=== PATIENT | male | born 1980 | race Caucasian/White ===

== ENCOUNTER 2020-08-11 21:38 | Inpatient (IN) ==
[2020-08-11 22:42] LABS: Urine Bilirubin 3 mg/dl (NEGATIVE); Urine Blood 25 /ul (NEGATIVE); Urine Ketone 15 mg/dL (NEGATIVE); Urine Nitrite Negative (NEGATIVE); Urine Protein 100 mg/dL (NEGATIVE); Urine Specific Gravity >=1.030 SP.GR. (1.005-1.030); Urine Urobilinogen Normal (NORMAL)
[2020-08-11] MEDS ORDERED: MULTIVIT INFUSN,ADULT 4,VIT K 10 ML, THIAMINE HCL 100 MG in NORMAL SALINE 1,000 ML IV SCH (22:45)
[2020-08-11 22:49] LABS: Urine Appearance Clear (CLEAR); Urine Color Dark Yellow; Urine WBC None Seen /hpf (0-5)
--- NOTE | 2020-08-11 22:49 | ERNOTE ---
Medical Problem HPI - Narrative Date of Service: 08/11/20 - General Chief Complaint: General Assessment Time Seen by Provider: 08/11/20 22:12 - Immun/Allergies/Home Medications Immunizations: IMMUNIZATION HX Immunizations Up to Date No History of Influenza Vaccine No Hx Pneumococcal Vaccination No Allergies/Adverse Reactions: Allergies No Known Allergies Allergy (Unverified 08/11/20 21:49) Home Medications: HOME MEDICATIONS NK 08/11/20 [Last Taken Unknown] - History of Present History Narrative: 39-year-old male states that he thinks he is withdrawing from alcohol. States his last drink was approximately 1 week ago and since then he has been having intermittent tremors he denies any hallucinations suicidal homicidal ideation. On exam patient is tremor seems to be somewhat distractible however her blood pressure is elevated and heart rate is in the 90s we will give a banana bag check labs to rule out infection and monitor Review of Systems - Review of Systems Constitutional: Present: See HPI Musculoskeletal: Present: See HPI Neurological: Present: See HPI Psych: Present: See HPI All Other Systems: All systems neg except as marked Medical History (Last Reviewed 08/11/20 @ 22:46 by Angelito Meraz MD) High blood pressure Surgical History: Surgical History (Last Reviewed 08/11/20 @ 22:47 by Angelito Meraz MD) No pertinent past surgical history Family History: Family History (Last Reviewed 08/11/20 @ 22:47 by Angelito Meraz MD) Father Hypertension Social History: (Last Reviewed 08/11/20 @ 22:47 by Angelito Meraz MD) Tobacco: Smoking Status: Current every day smoker tobacco type: cigarettes Smoking cigarettes per day: 20 Alcohol: Alcohol type: hard liquor alcohol intake frequency: a few times a week Physical Exam - Physical Exam General Appearance: Present: wd/wn, alert, no apparent distress, other - Somewhat disheveled in appearance Head Exam: Present: normal inspection, no evidence of injury, other - Poor dentition Eye Exam: Normal inspection: bilateral, PERRL: bilateral, EOMI: bilateral Ears, Nose, Throat: Present: normal ENT inspection Neck: Present: normal inspection, nontender, supple, full range of motion Respiratory: Present: no respiratory distress, no accessory muscle use Cardiovascular/Chest: Present: regular rate, rhythm Gastrointestinal/Abdominal: Present: nondistended Back Exam: Present: normal range of motion Extremity Exam: Present: normal inspection, normal range of motion, no edema Neurological Exam: Present: alert, oriented Skin Exam: Present: normal color, warm/dry Progress - Date and Time Seen: Date and Time: 08/11/20 22:48 Patient symptoms do not classically fit with alcohol withdrawal as he is stating his last drink was approximately 1 week ago and he describes the tremors as intermittent he has no focal deficits and appears to have somewhat distractible tremors however he does have elevated blood pressure but does have a history of hypertension and noncompliance with his medication we will check labs to rule out any source of infection as well as his urine evaluate for EtOH level and drugs I will provide him with IV normal saline banana bag. 08/11/20 23:41 Patient with lab abnormalities return significant for alcohol abuse such as hyponatremia hypokalemia he also exhibits some acute kidney injury and dehydration the patient was given an IV dose of Ativan and I begin replenishing his potassium with 40 mEq orally in addition he was ordered for 4K riders IV. We discussed this with the patient he agreed with plan for admission I talked to the doctor on-call Dr. Borrego who accepted the care and requested the withdrawal protocol while in the hospital. 08/12/20 01:26 Chest x-ray unremarkable EKG shows normal sinus rhythm with nonspecific changes - Vital Signs Vital Signs: Vital Signs 08/11/20 21:44 Temperature 36.1 C Pulse Rate 93 Respiratory Rate 16 Blood Pressure 157/88 H O2 Sat by Pulse Oximetry 99 - X-Ray X-Ray #1 X-Ray: chest Interpretation: Interp. by me, Reviewed by me X-ray Comments: Unremarkable for acute pathology - Progress/Reassessment Chief Complaint: General Assessment Progress:: Improved Departure Clinical Impression: Hypokalemia, Hyponatremia Alcohol withdrawal Qualifiers: Complication of substance-induced condition: uncomplicated Qualified Code(s): F10.230 - Alcohol dependence with withdrawal, uncomplicated Acute kidney failure, unspecified Qualifiers: Acute renal failure type: unspecified Qualified Code(s): N17.9 - Acute kidney failure, unspecified - Departure Disposition: Short Term Hospital Inpatient Condition: Fair
[2020-08-11 22:50] LABS: Urine Bacteria None Seen; Urine RBC 0-5 /hpf (0-5)
[2020-08-11] MEDS ORDERED: chlordiazePOXIDE HCL 10 MG CAPSULE PO ONE (22:50)
[2020-08-11 22:59] LABS: Hematocrit 51.4 % (42.0-52.0); Mean Cell Volume 89.5 fl (78-100); Mean Corpuscular Hemoglobin 31.4 pg (27-31); Mean Platelet Volume 11.1 fl (8-11.3); Platelet Count 247 K/mm3 (150-450); Red Blood Count 5.74 M/mm3 (4.7-6.0); Red Cell Distribution Width 13.2 % (11.5-14.0); White Blood Count 9.3 K/mm3 (4.0-10.5)
[2020-08-11 23:04] LABS: Total Cells Counted 100
[2020-08-11 23:12] LABS: ALT 60 U/L (19-67); AST 41 U/L (0-48); Albumin * 4.2 gm/dl (3.4-5.0); Alkaline Phosphatase * 89 U/L (50-170); Anion Gap 10.2 mmol/L (6.8-13.8); BUN/Creatinine Ratio 18.8 (9.0-21.6); Bilirubin, Total 1.8 mg/dL (0.0-1.1); Blood Urea Nitrogen 52 mg/dL (6-23); Calcium * 10.5 mg/dL (7.9-10.9); Chloride 80 mmol/L (97-106); Glucose * 108 mg/dL (70-110); Sodium 125 mmol/L (132-142); Total Protein 9.1 gm/dL (6.2-8.2)
[2020-08-11 23:16] LABS: Atypical (Reactive) Lymph 10 % (0-2); Eosinophil 2 % (0-3); Lymphocyte 7 % (20-51); Monocyte 10 % (0-9); Neutrophil 71 % (42-75); Neutrophil # 6.6 K/mm3 (1.3-6.0); Platelet Estimate Normal (NORMAL); RBC Morphology Normal (NORMAL)
[2020-08-11 23:18] LABS: Cocaine Ur Negative (NEGATIVE); Urine Barbiturate Negative (NEGATIVE); Urine Benzodiazepines Negative (NEGATIVE); Urine Opiates Negative (NEGATIVE); Urine PCP Negative (NEGATIVE)
[2020-08-11 23:20] LABS: Potassium 2.2 mmol/L (3.4-4.6)
[2020-08-11 23:20] LABS: Urine THC Negative (NEGATIVE)
[2020-08-11] MEDS ORDERED: LORazepam 1 MG TABLET PO ONE (23:24)
[2020-08-11] MEDS ORDERED: LORazepam 2 MG/ML DISP.SYRIN IV ONE (23:24)
[2020-08-11] MEDS ORDERED: POTASSIUM CHLORIDE 20 MEQ TABLET.SA PO ONE (23:26)
[2020-08-12] MEDS: POTASSIUM CHLORIDE IN WATER 100 ML IV SCH ×6 (00:15→11:59)
[2020-08-12] MEDS ORDERED: FOLIC ACID 1 MG TABLET PO STA (01:09)
[2020-08-12] MEDS ORDERED: LORazepam 2 MG/ML DISP.SYRIN IV PRN ×3 (01:09)
[2020-08-12] MEDS ORDERED: LORazepam 2 MG/ML DISP.SYRIN IV SCH (01:15)
--- NOTE | 2020-08-12 07:34 | HP ---
Chief Complaint - Chief Complaint Date of Service: 08/12/20 Chief Complaint: withdrawal History of Present Illness: Franklin Hugo is a 39-year-old white male who was admitted on 08/12/2020 for" I think I am withdrawing from alcohol ". He said he has history of chronic a lcohol abuse, elevated blood pressure in the past. He stopped drinking but started drinking again last week and consumed about 2 bottles of whiskey finishing it around 6 days ago. 3 days later he started having intermittent tremors cramping of his fingers, muscle aches and finally decided to go to the emergency room for help. He denies any fever or chills, diarrhea or constipation but admits to nausea and vomiting. He denied any hallucinations or suicidal homicidal ideations. He would like to have his blood pressure medication in the past be restarted. He was then admitted for further ev aluation and treatment. Medical History (Last Reviewed 08/11/20 @ 22:46 by Angelito Meraz MD) High blood pressure Surgical History: Surgical History (Last Reviewed 08/11/20 @ 22:47 by Angelito Meraz MD) No pertinent past surgical history Family History: Family History (Last Reviewed 08/11/20 @ 22:47 by Angelito Meraz MD) Father Hypertension Social History: (Last Updated 08/11/20 @ 23:17 by Astrid Ramirez RN) Tobacco: Smoking Status: Current every day smoker tobacco type: cigarettes Smoking cigarettes per day: 20 Alcohol: Alcohol type: hard liquor alcohol intake frequency: a few times a week Substance Use: substance use type: does not use Review Of Systems (GEN) - Review of Systems Generalized/Overall Review: Present: Malaise. Absent: Chills, Fever EENTM: Absent: Blurred Vision, Double Vision Respiratory: Absent: Cough, Shortness of Breath, Orthopnea Cardiac: Absent: Chest Pain, Edema, Palpitations Abdominal: Present: Nausea, Vomiting. Absent: Hematemesis, Abdominal Pain, Bright blood from rectum Genitourinary: Absent: Urgency, Frequency Musculoskeletal: Absent: Joint Pain, Back Pain Neurological: Absent: Headache Skin: Absent: Lesions, Rash Endocrine: Absent: Intolerance to Cold, Intolerance to Heat Misc: All systems neg except as marked Immunizations: IMMUNIZATION HX Immunizations Up to Date No History of Influenza Vaccine No Hx Pneumococcal Vaccination No Allergies/Adverse Reactions: Allergies Allergy/AdvReac Type Severity Reaction Status Date / Time No Known Allergies Allergy Unverified 08/11/20 21:49 Home Medications: HOME MEDICATIONS NK 08/11/20 [Last Taken Unknown] Exam - Exam Vital Signs: Vital Signs - Last Taken Temp 36.1 C 08/11/20 21:44 Pulse 75 08/12/20 07:00 Resp 17 08/12/20 07:00 BP 105/70 08/12/20 07:00 Pulse Ox 97 08/12/20 07:00 Constitutional: Present: Alert, Oriented x3, Cooperative ENT Exam: Present: hearing grossly normal Eye Exam: bilateral eye: normal inspection, PERRL, EOMI Neck: Present: supple. Absent: lymphadenopathy (R), lymphadenopathy (L) Respiratory: Present: normal breath sounds, No rales, No wheezing Cardiovascular/Chest: Present: regular rate, rhythm, no JVD, no murmur Abdomen: Present: Normal bowel sounds, soft, nontender, nondistended Extremity: Present: no calf tenderness. Absent: lower extremity edema Neurologic: Present: no motor/sensory deficits, oriented x 3 Diagnostic Studies: Abnormal Lab Results 08/11/20 08/11/20 08/11/20 Range/Units 22:38 22:55 22:55 MCH 31.4 H (27-31) pg Lymphocytes % (Manual) 7 L (20-51) % Monocytes % (Manual) 10 H (0-9) % Neutrophils # (Manual) 6.6 H (1.3-6.0) K/mm3 Lymphocytes # (Manual) 0.7 L (1.5-3.5) k/mm3 Atypic/Reactive Lymphs 10 H (0-2) % Sodium 125 L (132-142) mmol/L Plasma Sodium 125 L (130-142) mmol/L Potassium 2.2 L* (3.4-4.6) mmol/L Chloride 80 L (97-106) mmol/L Carbon Dioxide 37.0 H (24-32.6) mmol/L BUN 52 H (6-23) mg/dL Creatinine 2.76 H (0.4-1.4) mg/dL Est GFR (Non-Af Amer) 28 L (60-130) mL/min Total Bilirubin 1.8 H (0.0-1.1) mg/dL Total Protein 9.1 H (6.2-8.2) gm/dL Urine Protein 100 H (NEGATIVE) mg/dL Urine Blood 25 H (NEGATIVE) /ul Urine Bilirubin 3 H (NEGATIVE) mg/dl Ur Epithelial Cells 5-10 H (0-5) /hpf Laboratory Results WBC 9.3 K/mm3 (4.0-10.5) 08/11/20 22:55 RBC 5.74 M/mm3 (4.7-6.0) 08/11/20 22:55 Hgb 18.0 gm/dL (13.5-18.0) 08/11/20 22:55 Hct 51.4 % (42.0-52.0) 08/11/20 22:55 MCV 89.5 fl (78-100) 08/11/20 22:55 MCH 31.4 pg (27-31) H 08/11/20 22:55 MCHC 35.0 g/dl (32-36) 08/11/20 22:55 RDW 13.2 % (11.5-14.0) 08/11/20 22:55 Plt Count 247 K/mm3 (150-450) 08/11/20 22:55 MPV 11.1 fl (8-11.3) 08/11/20 22:55 Neutrophils % (Manual) 71 % (42-75) 08/11/20 22:55 Lymphocytes % (Manual) 7 % (20-51) L 08/11/20 22:55 Monocytes % (Manual) 10 % (0-9) H 08/11/20 22:55 Eosinophils % (Manual) 2 % (0-3) 08/11/20 22:55 Neutrophils # (Manual) 6.6 K/mm3 (1.3-6.0) H 08/11/20 22:55 Lymphocytes # (Manual) 0.7 k/mm3 (1.5-3.5) L 08/11/20 22:55 Monocytes # (Manual) 0.9 k/mm3 (0.0-1.0) 08/11/20 22:55 Eosinophils # (Manual) 0.2 k/mm3 (0.0-0.7) 08/11/20 22:55 Atypic/Reactive Lymphs 10 % (0-2) H 08/11/20 22:55 Platelet Estimate Normal (NORMAL) 08/11/20 22:55 RBC Morphology Normal (NORMAL) 08/11/20 22:55 Sodium 125 mmol/L (132-142) L 08/11/20 22:55 Plasma Sodium 125 mmol/L (130-142) L 08/11/20 22:55 Potassium 2.2 mmol/L (3.4-4.6) L* 08/11/20 22:55 Chloride 80 mmol/L (97-106) L 08/11/20 22:55 Carbon Dioxide 37.0 mmol/L (24-32.6) H 08/11/20 22:55 Anion Gap 10.2 mmol/L (6.8-13.8) 08/11/20 22:55 BUN 52 mg/dL (6-23) H 08/11/20 22:55 Creatinine 2.76 mg/dL (0.4-1.4) H 08/11/20 22:55 Est GFR (Non-Af Amer) 28 mL/min (60-130) L 08/11/20 22:55 BUN/Creatinine Ratio 18.8 (9.0-21.6) 08/11/20 22:55 Random Glucose 108 mg/dL (70-110) 08/11/20 22:55 Calcium 10.5 mg/dL (7.9-10.9) 08/11/20 22:55 Calcium Adj for Albumin 10.0 mg/dL (8.4-10.2) 08/11/20 22:55 Magnesium 2.6 mg/dL (1.2-2.8) 08/12/20 00:00 Total Bilirubin 1.8 mg/dL (0.0-1.1) H 08/11/20 22:55 AST 41 U/L (0-48) 08/11/20 22:55 ALT 60 U/L (19-67) 08/11/20 22:55 Alkaline Phosphatase 89 U/L (50-170) 08/11/20 22:55 Total Protein 9.1 gm/dL (6.2-8.2) H 08/11/20 22:55 Albumin 4.2 gm/dl (3.4-5.0) 08/11/20 22:55 Urine Color Dark yellow 08/11/20 22:38 Urine Appearance Clear (CLEAR) 08/11/20 22:38 Urine pH 5.0 pH (5.0-7.0) 08/11/20 22:38 Ur Specific [place] >=1.030 SP.GR. (1.005-1.030) 08/11/20 22:38 Urine Protein 100 mg/dL (NEGATIVE) H 08/11/20 22:38 Urine Glucose (UA) Negative mg/dL (NEGATIVE) 08/11/20 22:38 Urine Ketones 15 mg/dL (NEGATIVE) 08/11/20 22:38 Urine Blood 25 /ul (NEGATIVE) H 08/11/20 22:38 Urine Nitrate Negative (NEGATIVE) 08/11/20 22:38 Urine Bilirubin 3 mg/dl (NEGATIVE) H 08/11/20 22:38 Urine Urobilinogen Normal EU/dl (NORMAL) 08/11/20 22:38 Ur Leukocyte Esterase Negative /ul (NEGATIVE) 08/11/20 22:38 Urine RBC 0-5 /hpf (0-5) 08/11/20 22:38 Urine WBC None seen /hpf (0-5) 08/11/20 22:38 Ur Epithelial Cells 5-10 /hpf (0-5) H 08/11/20 22:38 Urine Bacteria None seen (NONE) 08/11/20 22:38 Urine Culture Comments No culture indicated 08/11/20 22:38 Urine Opiates Screen Negative (NEGATIVE) 08/11/20 22:37 Barbiturate Screen Negative (NEGATIVE) 08/11/20 22:37 Ur Phencyclidine Scrn Negative (NEGATIVE) 08/11/20 22:37 Urine Amphetamine Negative (NEGATIVE) 08/11/20 22:37 U Benzodiazepines Scrn Negative (NEGATIVE) 08/11/20 22:37 Urine Cocaine Screen Negative (NEGATIVE) 08/11/20 22:37 Urine Marijuana (THC) Negative (NEGATIVE) 08/11/20 22:37 Ethyl Alcohol Less than 3.0 mg/dL (0.0-10.0) 08/11/20 22:55 SARS-CoV-2 (PCR) Not detected (NotDetected) 08/12/20 00:00 Assessment/Plan - Narrative Narrative: Franklin was admitted for withdrawal symptoms from alcohol and was found to have hypokalemia, hyponatremia, acute kidney injury. He was started on IV fluids and his potassium was replenished. His sodium is now up to 130 from 125 and his potassium is up from 2.2 to 2.9. His total protein is also elevated at 9.1. This will need to be worked up further and will likely do a UPEP SPEP as an outpatient. We will continue with his IV fluids and potassium replenishment. He is on [facility] protocol. - Assessment/Plan (1) Alcohol withdrawal Problem: Acute Qualifiers: Complication of substance-induced condition: uncomplicated Qualified Code(s): F10.230 - Alcohol dependence with withdrawal, uncomplicated (2) Hypokalemia Problem: Acute (3) Hyponatremia Problem: Acute (4) Acute kidney failure, unspecified Problem: Acute Qualifiers: Acute renal failure type: unspecified Qualified Code(s): N17.9 - Acute kidney failure, unspecified
[2020-08-12 08:33] LABS: Anion Gap 10.4 mmol/L (6.8-13.8); BUN/Creatinine Ratio 21.1 (9.0-21.6); Calcium * 9.2 mg/dL (7.9-10.9); Carbon Dioxide 37.5 mmol/L (24-32.6); Estimated Creat Clear 42.8; Potassium 2.9 mmol/L (3.4-4.6)
[2020-08-12] MEDS ORDERED: NORMAL SALINE 1,000 ML IV ONE (09:04)
[2020-08-12] MEDS ORDERED: POTASSIUM CHLORIDE 20 MEQ TABLET.SA PO ONE (09:04)
[2020-08-12] MEDS ORDERED: POTASSIUM CHLORIDE IV SCH (09:15)
[2020-08-12] MEDS ORDERED: [UNRECOGNIZED DRUG - OTHER] IV SCH (09:15)
[2020-08-12] MEDS ORDERED: NORMAL SALINE 500 ML IV ONE (10:05)
[2020-08-12] MEDS: FOLIC ACID 1 MG TABLET PO SCH (11:22)
[2020-08-12] MEDS: MULTIVITAMINS 1 CAP CAPSULE PO SCH (11:22)
[2020-08-12] MEDS: THIAMINE HCL 100 MG TABLET PO SCH (11:22)
[2020-08-12] MEDS ORDERED: PANTOPRAZOLE SODIUM 40 MG in NORMAL SALINE 100 ML IV SCH (12:00)
[2020-08-12] MEDS: POTASSIUM CHLORIDE 20 MEQ in NORMAL SALINE 1,000 ML IV SCH ×2 (15:02→23:58)
[2020-08-12 17:08] LABS: Anion Gap 8.4 mmol/L (6.8-13.8); BUN/Creatinine Ratio 21.4 (9.0-21.6); Calcium * 8.6 mg/dL (7.9-10.9); Estimated Creat Clear 45.8; Potassium 3.4 mmol/L (3.4-4.6)
[2020-08-13] MEDS: POTASSIUM CHLORIDE 20 MEQ in NORMAL SALINE 1,000 ML IV SCH (08:26)
[2020-08-13] MEDS: MULTIVITAMINS 1 CAP CAPSULE PO SCH (08:28)
[2020-08-13] MEDS: FOLIC ACID 1 MG TABLET PO SCH (08:28)
[2020-08-13] MEDS: THIAMINE HCL 100 MG TABLET PO SCH (08:28)
--- NOTE | 2020-08-13 09:38 | DS ---
(1) Alcohol withdrawal Problem: Resolved Qualifiers: Complication of substance-induced condition: uncomplicated Qualified Code(s): F10.230 - Alcohol dependence with withdrawal, uncomplicated (2) Hypokalemia Problem: Resolved (3) Hyponatremia Problem: Acute (4) Acute kidney failure, unspecified Problem: Acute Qualifiers: Acute renal failure type: unspecified Qualified Code(s): N17.9 - Acute kidney failure, unspecified Date of Discharge:: 08/13/20 Hospital Course: Franklin Hugo is a 39-year-old white male who was admitted on 08/12/2020 for" I think I am withdrawing from alcohol ". He said he has history of chronic alcohol abuse, elevated blood pressure in the past. He stopped drinking but started drinking again last week and consumed about 2 bottles of whiskey finishing it around 6 days ago. 3 days later he started having intermittent tremors cramping of his fingers, muscle aches and finally decided to go to the emergency room for help. He denies any fever or chills, diarrhea or constipation but admits to nausea and vomiting. He denied any hallucinations or suicidal homicidal ideations. He was then admitted for further evaluation and treatment. He was stared on a IV banana bag and NSS with Kcl. He was put on our CIWA protocol with Ativan coverage. His Na went up to 131 and k back to normal. His Cr/GFR have improved. He has wanted to have his blood pressure medication restarted but we find out that it was hydrochlorothiazide 12.5 mg p.o. daily. We will not be able to restart this as it will cause him to be more dehydrated, and can cause hypokalemia and hyponatremia. He is stable to go home today. He was told to get connected with an [facility] group and we will make him an appointment with our Psychologist here. Procedures Performed: none Results and Findings: Lab Pending Results 08/11/20 22:37: Urine Opiates Screen Negative, Barbiturate Screen Negative, Ur Phencyclidine Scrn Negative, Urine Amphetamine Negative, U Benzodiazepines Scrn Negative, Urine Cocaine Screen Negative, Urine Marijuana (THC) Negative 08/11/20 22:38: Urine Color Dark yellow, Urine Appearance Clear, Urine pH 5.0, Ur Specific [place] >=1.030, Urine Protein 100 H, Urine Glucose (UA) Negative, Urine Ketones 15, Urine Blood 25 H, Urine Nitrate Negative, Urine Bilirubin 3 H, Urine Urobilinogen Normal, Ur Leukocyte Esterase Negative, Urine RBC 0-5, Urine WBC None seen, Ur Epithelial Cells 5-10 H, Urine Bacteria None seen, Urine Culture Comments No culture indicated 08/11/20 22:55: WBC 9.3, RBC 5.74, Hgb 18.0, Hct 51.4, MCV 89.5, MCH 31.4 H, MCHC 35.0, RDW 13.2, Plt Count 247, MPV 11.1, Neutrophils % (Manual) 71, Lymphocytes % (Manual) 7 L, Monocytes % (Manual) 10 H, Eosinophils % (Manual) 2, Neutrophils # (Manual) 6.6 H, Lymphocytes # (Manual) 0.7 L, Monocytes # (Manual) 0.9, Eosinophils # (Manual) 0.2, Atypic/Reactive Lymphs 10 H, Platelet Estimate Normal, RBC Morphology Normal 08/11/20 22:55: Sodium 125 L, Plasma Sodium 125 L, Potassium 2.2 L*, Chloride 80 L, Carbon Dioxide 37.0 H, Anion Gap 10.2, BUN 52 H, Creatinine 2.76 H, Est GFR (Non-Af Amer) 28 L, BUN/Creatinine Ratio 18.8, Random Glucose 108, Calcium 10.5, Calcium Adj for Albumin 10.0, Total Bilirubin 1.8 H, AST 41, ALT 60, Alkaline Phosphatase 89, Total Protein 9.1 H, Albumin 4.2, Ethyl Alcohol Less than 3.0 08/12/20 00:00: SARS-CoV-2 (PCR) Not detected 08/12/20 00:00: Magnesium 2.6 08/12/20 07:51: Sodium 130 L, Plasma Sodium 131, Potassium 2.9 L D, Chloride 85 L, Carbon Dioxide 37.5 H, Anion Gap 10.4, BUN 45 H, Creatinine 2.13 H D, Est GFR (Non-Af Amer) 37 L D, BUN/Creatinine Ratio 21.1, Random Glucose 138 H, Calcium 9.2 08/12/20 16:57: Sodium 131 L, Plasma Sodium 131, Potassium 3.4, Chloride 93 L, Carbon Dioxide 33.0 H, Anion Gap 8.4, BUN 41 H, Creatinine 1.92 H, Est GFR (Non- Af Amer) 42 L, BUN/Creatinine Ratio 21.4, Random Glucose 102, Calcium 8.6 Discharge Location: Home Disposition: Home self-care Condition: Stable Discharge Activity: Activity as tolerated Discharge Diet: General/regular food Referrals: Mejia Borrego MD [Staff Physician] - Problem Oriented Discharge Instructions to Patient/Family: Alcohol Use Disorder, Alcohol Withdrawal Syndrome, Alcohol Abuse and Nutrition, Finding Treatment for Addiction Additional Patient Instructions (free text): Follow up with his PCP in 2 weeks. Please make an appointment with our Psychology for alcohol dependence/abuse [facility] will call you on Friday with Dr. Borrego follow up appointment. Complete Home Medications List: Complete Home Medication List: Folic Acid 1 mg PO DAILY tablet 08/13/20 Thiamine HCl [Vitamin B-1] 100 mg PO DAILY tablet 08/13/20 Forms: Patient Portal Registration
[2020-08-13 12:13] VITALS: BP 133/88
== END 2020-08-13 11:58 | disposition home or self-care (01) | DRG 897 ==
LOC: ER 21:38 → MS 08-12 00:22
PROVIDERS: ADMIT Internal Medicine; ATTEND Internal Medicine